=== PATIENT | male | born 1990 | race Caucasian/White ===

== ENCOUNTER 2024-10-27 22:26 | Emergency (ER) | payer BC, SELFPAY ==
--- NOTE | ~2024-10-27 | XR_ITS ---
CHEST RADIOGRAPH, PA AND LATERAL CLINICAL HISTORY: LEFT SIDE CHEST PRESSURE RADIATING INTO LEFT ARM. . COMPARISON: None available TECHNIQUE: PA and lateral views of the chest. FINDINGS The cardiomediastinal silhouette is unremarkable. The lungs are clear. Visualized osseous structures and soft tissues are unremarkable. IMPRESSION: No focal infiltrate or effusion. Reviewed, dictated and finalized at location A.
[2024-10-27 22:29] VITALS: BP 139/87; PULSE 108; RESP 22; TEMP 36.4; O2SAT 95
--- NOTE | 2024-10-27 22:39 | ED_ITS ---
HPI - Anxiety General Chief Complaint: Anxiety Stated Complaint: Anxiety Time Seen by Provider: 10/27/24 22:38 Source: patient Mode of arrival: ambulatory Limitations: no limitations History of Present Illness HPI narrative: Patient is a 33-year-old male who was out tonight on a date and had a little bit of marijuana and further started to get some anxiety and some left arm tingling and a little chest pain. This is similar to a prior event over a year ago. He came to the ER just to make sure he is safe with the chest pain. MD complaint: anxiety and other ( Left chest pain) Onset (ago): hour(s) ( 2) Symptoms: chest pain Severity: mild Quality: constant Place: other ( out this evening on a date) History of similar episodes: Yes Provoking factors: other ( anxiety with this date and marijuana use and some alcohol) Relieving factors: nothing Exacerbating factors: thinking about event Associated symptoms: chest pain Review of Systems 2 Review of Systems: All systems reviewed & are unremarkable except as noted in HPI and below Constitutional: Constitutional: Reports no additional constitutional complaints Eyes: Eyes: Reports no additional eye complaints ENT: Reports system reviewed and no additional complaints, except as documented Cardiovascular: Cardiovascular: Reports no additional cardiovascular complaints Respiratory: Respiratory: Reports no additional respiratory complaints Gastrointestinal: Gastrointestinal: Reports no additional gastrointestinal complaints Genitourinary: Genitourinary: Reports no additional male genitourinary complaints Musculoskeletal: Musculoskeletal: Reports no additional musculoskeletal complaints Integumentary/Breasts: Skin/Breast: Reports system reviewed and no additional complaints, except as docu Neurologic: Reports system reviewed and no additional complaints, except as documented Psychiatric: Psychiatric: Reports no additional psychiatric complaints Endocrine: Endocrine: Reports no additional endocrine complaints Hematologic/Lymphatic: Hematologic/Lymphatic: Reports no additional hematologic/lymphatic complaints Allergic/Immunologic: Allergic/Immunologic: Reports no additional allergic/immunologic complaints PMFSH Social History Social History Substance use type: marijuana Exam 2 Const: General: healthy appearing Nutritional Appearance: well nourished Orientation/consciousness: patient oriented x3 Limitations: no limitations HENMT: Head: normal to inspection Ears: external ears normal F amish/Nose/Sinus: Normal external nose present Eyes: Conjunctivae: conjunctivae normal Pupils: Equal, round and reactive pupils present EOM: EOMs intact bilaterally Neck: Neck: normal visual inspection Chest: Chest palpation & inspection: normal inspection of the chest Resp: Effort & Inspection: normal respiratory effort and not labored A uscultation: clear to auscultation bilaterally and no crackles Cardio: Rate: regular rate Rhythm: regular rhythm Heart sounds: no murmurs GI: Inspection: non-distended GI Palp: Yes Soft to palpation and No Tenderness to palpation present (GI) Auscultation: normal bowel sounds : General: Yes bladder normal to palpation Back/Spine/Pelvis: Back: no CVA tenderness Skin: General skin exam: normal color Rashes: no rashes Wounds: no wounds Neuro: General: patient oriented x3, moves all extremities, no meningeal signs, no focal motor deficits and CN's II-XI intact bilaterally Cranial nerves: Yes Nystagmus not present Speech: normal speech Gait exam (Neuro): Normal gait present Extrem: General: normal to inspection Psych: Mental Status: mental status grossly normal Affect: normal affect Attitude: cooperative Course Vital Signs Vital signs: Vital Signs Temperature 36.4 C 10/27/24 22:29 Pulse Rate 108 H 10/27/24 22:29 Respiratory Rate 22 H 10/27/24 22:29 Blood Pressure 139/87 10/27/24 22:29 Pulse Oximetry 95 10/27/24 22:29 Oxygen Delivery Room Air 10/27/24 22:29 Temperature 36.4 C 10/27/24 22:29 Pulse Rate 108 H 10/27/24 22:29 Respiratory Rate 22 H 10/27/24 22:29 Blood Pressure 139/87 10/27/24 22:29 Pulse Oximetry 95 10/27/24 22:29 Oxygen Delivery Room Air 10/27/24 22:29 MDM - Anxiety MDM Narrative Medical decision making narrative: patient is a 33-year-old male with some anxiety this evening. He would like us to do a chest pain workup for reassurance. Cardiac workup done at this time. Lab Data Attestation: I reviewed the patient's lab results. Lab results narrative: Nonspecific elevated wbc's with a normal differential 10/27/24 22:54 10/27/24 22:54 Labs: Lab Results 10/27/24 10/27/24 Range/Units 22:53 22:54 WBC 13.2 H (4.8-10.8) K/mm3 RBC 5.36 (4.70-6.10) M/mm3 Hgb 16.1 (14.0-18.0) g/dL Hct 48.0 (40.0-54.0) % MCV 89.6 (78.0-102.0) fL MCH 30.0 (27.0-31.0) pg MCHC 33.5 (32-36) g/dL RDW 12.0 (11.6-14.4) % Plt Count 257 (150-420) K/mm3 MPV 8.1 L (8.7-11.0) fl Immature Gran % (Auto) 0.4 H (0.0-0.0) % Neut % (Auto) 60.3 (50.0-70.0) % Lymph % (Auto) 30.2 (18.0-42.0) % [place] % (Auto) 4.8 (2.0-11.0) % Eos % (Auto) 3.6 (1.0-6.0) % Baso % (Auto) 0.7 (0.0-1.0) % Lymph # (Auto) 3.99 (1.10-4.50) K/mm3 [place] # (Auto) 0.63 (0.10-0.90) K/mm3 Eos # (Auto) 0.48 (0.02-0.50) K/mm3 Baso # (Auto) 0.09 (0.00-0.10) K/mm3 Abs Immat Gran (auto) 0.05 H (0.00-0.00) K/mm3 Absolute Neuts (auto) 7.98 H (1.70-7.20) K/mm3 Absolute Nucleated RBC 0.00 (0.00-0.00) K/mm3 Nucleated RBC % 0.0 (0-0.0) % D-Dimer 0.21 (0.19-0.50) mg/L Sodium 144 (136-145) mmol/L Potassium 3.9 (3.5-5.1) mmol/L Chloride 106 (98-108) mmol/L Carbon Dioxide 29 (21-32) mmol/L Anion Gap 9 (4-12) mmol/L BUN 14 (7-18) mg/dL Creatinine 1.10 (0.70-1.30) mg/dL Estim Creat Clear Calc 98 ml/min Estimated GFR > 60 (59 - ) Glucose 95 (70-99) mg/dL Calculated Osmolality 298 H (285-295) mOsm/kg Calcium 9.2 (8.5-10.1) mg/dL Total Bilirubin 0.5 (0.00-1.00) mg/dL AST 31 (15-37) U/L ALT 101 H (16-63) U/L Alkaline Phosphatase 98 (46-116) U/L Troponin I < 4.0 (0.00-60.4) ng/L NT-Pro-B Natriuret Pep < 5 (0-125) pg/mL Total Protein 7.7 (6.4-8.2) g/dL Albumin 4.1 (3.4-5.0) g/dL Lipase 23 (16-77) U/L Imaging Data Attestation: I personally reviewed and interpreted this imaging study as follows: Radiologist's impression: chest x-ray is negative for acute process ECG Data EKG #1: Attestation: I personally reviewed and interpreted this ECG as follows: ECG completion date: 10/27/24 ECG completion time: 23:33 EKG Interpretation: normal rate, sinus rhythm, no ST changes, normal QRS, normal QT and NL axis Discharge Plan Discharge Clinical Impression: Acute anxiety, Atypical chest pain Patient Disposition: Home, Self-Care Condition: Stable Instructions: Anxiety (ED) Patient Language: Montenegrin Follow-up/Referrals: David Stock MD [Primary Care Provider] - Time of Disposition: 23:34
--- NOTE | 2024-10-27 22:44 | ECG_ITS ---
Test Date: 2024-10-27 23:12:08 Measurements Intervals [place] Rate: 94 P: 41 NV: 158 QRS: 1 QRSD: 93 T: 19 QT: 335 QTc: 420 Interpretive Statements SINUS RHYTHM WITH SINUS ARRHYTHMIA BASELINE ARTIFACT- II, III, AVF NORMAL ECG No previous ECG available for comparison Electronically Signed On 10-28-2024 07:28:24 CDT by Qamar Ch D.O.
--- NOTE | 2024-10-27 22:53 | PC.NURSE ---
LAB HAS FINISHED. PATIENT BEING TRANSPORTED TO RADIOLOGY VIA WHEEL CHAIR
--- OUTSIDE RECORDS SUMMARY | 2024-10-27 22:54 | XMS_ITS | Clinical Summary ---
Author Organization [facility] Address [address] [place] [address] Care Team Providers Care Miller Head Wet Process Name Role Phone Unavailable Primary Care Provider Unavailabl e Source Comments [facility],non-owned Affiliates and Associated Physician Practices is amultiple site organization consisting of ambulatory clinics and hospital sitesin [place], [place], [place] and [place]. This disclosure is being madepursuant to the Care Everywhere program and may not contain all information available regarding this patient. Last updated 18.[employer] [facility] Allergies Active Allergy Reactions Criticality Noted Date Comments Sulfamethoxazole W-Trimethoprim 09/24 Sulfa Drugs 10/15/2016 Medications * Be aware that medications may not be up to date on this document. Alwaysverify current medications with the patient. Medication Sig Dispensed Refills Start Date End Date Status predniSONE (DELTASONE) 10 MG tablet Take 1 tablet by mouth as directed Days 1-3: 5 po qd, Days 4-6: 4 po qd, Days 7-9: 3 po qd, Days 10-12: 2 po qd, Days 13-15: 1 po qd 45 tablet 08/02/2017 Active Additional Information Patient not taking.Reported on 12/06/2022 hydrOXYzine pamoate (Vistaril) 25 MG capsule Take 1 (one) capsule by mouth 4 times daily as needed Active promethazine-DM syrup Take 5 mL by mouth every 6 hours as needed for Cough 118 mL 03/22/2023 Active Active Problems Problem Noted Date Diagnosed Date Nasal polyp 08/02/2017 Nausea and vomiting 10/16/2016 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 Erythrocytosis 10/16/2016 Hypocalcemia 10/16/2016 Resolved Problems Problem Noted Date Diagnosed Date Resolved Date Impacted cerumen of left ear 08/02/2017 08/16/2017 Family History Medical History Relation Name Comments Diabetes Father Heart Disease Father Diabetes Mother Heart Disease Mother Relation Name Status Comments Father Alive Mother Alive Social History Tobacco Use Types Packs/Day Years Used Date Smoking Tobacco: Never Smokeless Tobacco: Never Alcohol Use Standard Drinks/Week Comments Yes 0 (1 standard drink = 0.6 oz pur e alcohol) 3-4 drinks, 3 times per week AUDIT-C Answer Date Recorded Q1: How often do you have a drink containing alc ohol? Monthly or less 12/06/2022 Q2: How many drinks containi ng alcohol do you have on a typical day when you are drinking? 1 or 2 12/06/2022 Q3: How often do you have si x or more drinks on one occasion? Less than monthly 12/06/2022 Sex and Gender Information Value Date Recorded Sex Assigned at Not on file Gender Identity Not on file Sexual Orientation Not on file Last Filed Vital Signs Vital Sign Reading Time Taken Comments Blood Pressure 139/96 03/22/2023 1:07 AM CDT Pulse 85 03/22/2023 1:07 AM CDT Temperature 36.9 C (98.5 F) 03/22/2023 1:07 AM CDT Respiratory Rate 19 03/22/2023 1:07 AM CDT Oxygen Saturation 99% 03/22/2023 1:07 AM CDT Inhaled Oxygen Concentration - - Weight 99.8 kg (220 lb) 03/22/2023 1:07 AM CDT Height 172.7 cm (5' 8 ) 03/22/2023 1:07 AM CDT Body Mass Index 33.45 03/22/2023 1:07 AM CDT Plan of Treatment Health Maintenance Due Date Last Done Comments HIV SCREENING 2004 DTAP/TDAP/TD VACCINES (1 - Tdap) 2008 HEPATITIS B VACCINE (1 of 3 - 19+ 3-dose series) 2008 COVID-19 VACCINE ( - 2023-2 5 season) 2024 INFLUENZA VACCINE (#1) 2024 9, 05/17/2017, 05/17/2015 DEPRESSION SCREENING 07/26/2024 SBIRT 07/26/2024 ZOSTER VACCINE (1 of 2) 12/23/2039 HEPATITIS C SCREENING Completed 10/16/2016 HIB VACCINE Aged Out No longer eligi ble based on patient's age to complete this topic HPV VACCINE Aged Out No longer eligi ble based on patient's age to complete this topic MENINGOCOCCAL (Group B) VACCINE SHARED DECISION-MAKING Aged Out No longer eligible based on patient's age to complete this topic MENINGOCOCCAL GROUPS A/C/Y/W VACCINE Aged Out No longer eligible b ased on patient's age to complete this topic PNEUMOCOCCAL VACCINE Aged Out No long er eligible based on patient's age to complete this topic Procedures Procedure Name Priority Date/Time Associated Diagnosis Comments HEPATITIS SCREEN ACUTE Routine 10/16/2016 6:10 AM CDT Volume depletion Intractable vomiting with nausea, unspecified vomiting type Leukocytosis, unspecified type from Last 3 Months or Most Recently Relevant to Health Maintenance Results * HEPATITIS SCREEN ACUTE (10/16/2016 6:10 AM CDT) HAV Antibody IgM Negative Negative 10/16/2016 10:15 AM CDT [facility] HBc Antibody IgM Negative Negative 10/16/2016 10:15 AM CDT [facility] HBsAg Negative Negative 10/16/2016 10:15 AM CDT [facility] HCV Antibody Screen Negative Negative 10/16/2016 10:15 AM CDT [facility] Hepatitis C Virus Index 0.06 0.00 - 0.99 10/16/2016 10:15 AM CDT [facility] Blood BLOOD SPECIMEN / Unknown Lab Venipuncture / Unknown 10/16/2016 6:10 AM CDT 10/16/2016 7:00 AM CDT Lauren Whalen PA-C LAB - CHEMISTR Y ORDERABLES [facility] [address] [place] [address], [facility] from Last 3 Months or Most Recently Relevant to Health Maintenance Advance Directives * Full Code (Latest Code Status on File) Date Activated Date Inactivated Comments 10/15/2016 9:26 PM 10/16/2016 5:13 PM
[2024-10-27 22:57] LABS: Basophils Absolute Auto 0.09 K/mm3 (0.00-0.10); Basophils Percent Auto 0.7 % (0.0-1.0); Eosinophils Absolute Auto 0.48 K/mm3 (0.02-0.50); Eosinophils Percent Auto 3.6 % (1.0-6.0); Hemoglobin 16.1 g/dL (14.0-18.0); Immature Granulocyte Absolute 0.05 K/mm3 (0.00-0.00); Immature Granulocyte Percent A 0.4 % (0.0-0.0); Lymphocytes Absolute Auto 3.99 K/mm3 (1.10-4.50); Lymphocytes Percent Auto 30.2 % (18.0-42.0); Mean Corpuscular HGB Conc 33.5 g/dL (32-36); Mean Corpuscular Volume 89.6 fL (78.0-102.0); Mean Platelet Volume 8.1 fl (8.7-11.0); Monocytes Absolute Auto 0.63 K/mm3 (0.10-0.90); Monocytes Percent Auto 4.8 % (2.0-11.0); Neutrophils Absolute Auto 7.98 K/mm3 (1.70-7.20); Neutrophils Percent Auto 60.3 % (50.0-70.0); Platelet Count Result 257 K/mm3 (150-420); Red Blood Count 5.36 M/mm3 (4.70-6.10); White Blood Count 13.2 K/mm3 (4.8-10.8)
--- NOTE | 2024-10-27 23:07 | PC.NURSE ---
ARIAS ALDRICH, AT THE BEDSIDE COMPLETING EKG
[2024-10-27 23:11] LABS: D Dimer 0.21 mg/L (0.19-0.50)
[2024-10-27 23:20] LABS: Alanine Aminotransferase 101 U/L (16-63); Albumin Level 4.1 g/dL (3.4-5.0); Alkaline Phosphatase 98 U/L (46-116); Anion Gap 9 mmol/L (4-12); Aspartate Amino Transferase 31 U/L (15-37); Bilirubin,Total 0.5 mg/dL (0.00-1.00); Blood Urea Nitrogen 14 mg/dL (7-18); Calcium 9.2 mg/dL (8.5-10.1); Carbon Dioxide 29 mmol/L (21-32); Chloride 106 mmol/L (98-108); Estimated CRCL calculation 98 ml/min; Estimated Glomerular Filt Rate > 60; Glucose 95 mg/dL (70-99); Lipase 23 U/L (16-77); NT Pro B Type Natriuretic Pept < 5 pg/mL (0-125); Osmolality Calculated 298 mOsm/kg (285-295); Potassium 3.9 mmol/L (3.5-5.1); Sodium 144 mmol/L (136-145); Total Protein 7.7 g/dL (6.4-8.2)
[2024-10-27 23:25] LABS: Troponin I < 4.0 ng/L (0.00-60.4)
--- NOTE | 2024-10-27 23:30 | PC.NURSE ---
PATIENT RESTING QUIETLY ON STRETCHER. DR PERAZA NOTIFIED THAT ALL ORDERS HAVE BEEN COMPLETED
[2024-10-27 23:35] VITALS: BP 122/80; PULSE 89; RESP 16; O2SAT 99
== END 2024-10-27 23:38 | disposition home or self-care (01) ==
PROVIDERS: Emergency Provider Emergency Medicine; PCP Internal Medicine
DX: F41.9 Anxiety disorder, unspecified (principal); R07.89 Other chest pain
CPT/HCPCS: 36415; 71046; 80053; 83690; 83880; 84484; 85025; 85380; 93005; 99284